=== PATIENT | female | born 2005 | race Caucasian/White ===

== ENCOUNTER → 2025-05-15 14:26 | Outpatient (CLI) | payer OTHER, SELFPAY ==
[2025-05-15 14:47] LABS: Appearance Urine UA CLEAR; Bilirubin Urine UA NEGATIVE (NEGATIVE); Color Urine UA YELLOW; Glucose Urine UA NEGATIVE (Negative); Ketones Urine UA NEGATIVE (NEGATIVE); Leukocyte Esterase Urine UA NEGATIVE (NEGATIVE); Nitrite Urine UA NEGATIVE (Negative); Occult Blood Urine UA NEGATIVE (Negative); Protein Urine UA NEGATIVE (Negative); Specific Gravity Urine UA <=1.005 (1.000-1.035); Urobilinogen Urine UA 0.2 E.U./dL (0.2)
[2025-05-15 14:51] LABS: pH Urine UA 5.5 (4.5-8.0)
[2025-05-15 15:09] LABS: Add Manual Diff / Slide Review NO; Basophils Absolute Auto 0 /uL (0-100); Basophils Percent Auto 0.5 % (0-2); Eosinophils Absolute Auto 0 /uL (0-450); Eosinophils Percent Auto 0.9 % (2-4); Hematocrit 34.8 % (36-46); Hemoglobin 12.5 g/dL (12.0-16.0); Lymphocytes Absolute Auto 1300 /uL (1100-4500); Lymphocytes Percent Auto 25.6 % (25-40); Mean Corpuscular HGB Conc 35.8 % (30-36); Mean Corpuscular Hemoglobin 31.9 PG (26-34); Monocytes Absolute Auto 500 /uL (0-900); Monocytes Percent Auto 10.5 % (3-14); Neutrophils Absolute Auto 3100 /uL (1500-7000); Neutrophils Percent Auto 62.5 % (50-75); Platelet Count 137 X10^3/uL (150-400); Red Blood Cell Count 3.91 X10^6/uL (4.0-5.2); Red Cell Distribution Width 12.6 % (11.6-14.8); White Blood Cell Count 4.9 X10^3/uL (4.5-11.0)
[2025-05-16 15:20] LABS: HIV 1 & 2 Ab/Ag 4th Gen Combo NEGATIVE (NEGATIVE); Hep C Virus Ab w/Reflex Quant NEGATIVE s/c (NEGATIVE); Hepatitis B Surface Antigen NEGATIVE s/c (NEGATIVE); Rubella Antibody IgG 21.8 IU/mL (>15)
[2025-05-17 09:08] LABS: Varicella IgG Antibody Non Reactive (Non Reactive)
== END ==
PROVIDERS: Referring Provider Family Medicine; Visit Provider Family Medicine
DX: Z34.00 Encounter for supervision of normal first pregnancy, unspecified trimester (principal)
CPT/HCPCS: 36415; 80055; 81003; 86787; 86803; 86850; 86900; 86901; 87086; 87389

== ENCOUNTER → 2025-06-12 14:12 | Outpatient (CLI) | payer OTHER, SELFPAY ==
[2025-06-12 15:41] LABS: Natera Collection Specimen Collected
== END ==
PROVIDERS: Referring Provider Family Medicine; Visit Provider Family Medicine
DX: Z34.02 Encounter for supervision of normal first pregnancy, second trimester (principal)
CPT/HCPCS: 36415

== ENCOUNTER → 2025-08-17 07:21 | Outpatient (CLI) | payer OTHER, SELFPAY ==
--- NOTE | 2025-08-17 07:28 | DI.US.S_ITS ---
PROCEDURE: US OB >= 14 WEEKS FETUS INDICATIONS: Anatomy Scan OUTSIDE/PRIOR DATING DATA: Last menstrual period (LMP): Unknown. LMP-based estimated date of delivery (CANDY): Not applicable. First dating scan (date and location): May 15, 2025. Estimated date of delivery (CANDY) from first dating scan: December 14, 2025. The calculations are made using the clinician provided CANDY of December 10, 2025. TECHNIQUE: Real-time scanning was performed of the fetus, with image documentation and biometric measurements. Endovaginal scanning: Not performed COMPARISON: None. FINDINGS: General: A single living intrauterine gestation is present. Presentation: Vertex. Placenta: Placental position is anterior , without previa. Amniotic fluid index: 21.7 cm, normal range is 5-24 cm. Single deepest vertical pocket is 6.0 cm. heart rate: 163 beats per minute. Maternal cervical canal: 3.5 cm long. Normal lower limit is 2.5 cm. biometrics: Biparietal diameter: 6.2 cm, 25 weeks and 0 days Head circumference: 21.9 cm, 24 weeks and 0 days Abdominal circumference: 19.3 cm, 24 weeks and 0 days Femur length: 4.0 cm, 22 weeks and 6 days Clinically estimated gestational age: 23 weeks and 4 days Composite gestational age from present scan: 24 weeks and 0 days Estimated weight and percentile: Approximately 615 g which correlates with the 45th percentile for gestational age Anatomic survey: Neuro: Ventricles are non-dilated at less than 10 mm. Cisterna magna is normal at 3-11 mm. Cerebellum is normal in size and morphology. Nuchal skin fold: Normal at less than 6 mm between 14-21 weeks gestational age. Face: Nose and lips, facial profile are normal. Spine: No evidence for spina bifida. Heart: 4-chambered heart is present, with normal ventricular outflow tracts. Diaphragm: Diaphragm is intact. Stomach: Left-sided stomach is present. Kidneys: Borderline prominent left renal pelvic AP diameter of approximately 5 mm. No gross hydronephrosis. Normal is less than 5 mm in 2nd trimester, less than 7 mm in 3rd trimester. Cord: 3-vessel cord has orthotopic insertion. Bladder: Normal in size. Extremities: All 4 extremities identified. IMPRESSION: Single living intrauterine gestation with estimated sonographic gestational age of approximately 24 weeks and 0 days versus approximately 23 weeks and 4 days by clinically estimated gestational age. Normal interval growth. Estimated weight of approximately 615 g which correlates with the 45th percentile for gestational age. Borderline prominence of the left renal pelvis measuring approximately 5 mm. No catalina hydronephrosis seen on either side. Recommend follow up ultrasound at 32 weeks gestational age. Otherwise, unremarkable second-trimester anatomy screening survey. We strive to produce accurate, complete, and clear reports of imaging services. To assist us in improving patient care, this report was composed using standard report templates and voice recognition software. Therefore, it may contain abnormal punctuation, insertions and/or omissions. Occasional wrong-word or sound-alike substitutions may occur. Though we review the report and make efforts to correct it, we do recommend that the report be read carefully in proper context to recognize any text inaccuracies. Dictated by: Greg Hunt M.D. on 08/17/2025 at 11:33 Approved by: Greg Hunt M.D. on 08/17/2025 at 11:50
== END ==
LOC: US 07:24
PROVIDERS: Referring Provider Family Medicine; Visit Provider Family Medicine
DX: Z36.89 Encounter for other specified antenatal screening (principal)
CPT/HCPCS: 76811

== ENCOUNTER → 2025-08-21 09:14 | Outpatient (CLI) | payer OTHER, SELFPAY ==
[2025-08-21 11:31] LABS: Hematocrit 30.4 % (36-46); Hemoglobin 10.7 g/dL (12.0-16.0)
[2025-08-21 12:07] LABS: GTT (PREG) 1 Hour PP 50gm Dose 67 mg/dL (76-139)
== END ==
PROVIDERS: Referring Provider Family Medicine; Visit Provider Family Medicine
DX: Z3A.26 26 weeks gestation of pregnancy (principal)
CPT/HCPCS: 36415; 82950; 85014; 85018

== ENCOUNTER → 2025-10-21 13:20 | Outpatient (CLI) | payer OTHER, SELFPAY ==
--- NOTE | 2025-10-21 13:23 | DI.US.S_ITS ---
PROCEDURE: US OB FOLLOW UP INDICATIONS: POSSIBLE PELVIECTASIS AND GROWTH OUTSIDE/PRIOR DATING DATA: Working CANDY: 12/10/2025 TECHNIQUE: Real-time scanning was performed of the fetus, with image documentation and biometric measurements. Spectral and Doppler evaluation of the umbilical artery was performed. Endovaginal scanning: Not performed COMPARISON: None. FINDINGS: General: A single living intrauterine gestation is present. Presentation: Vertex. Placenta: Placental position is anterior , without previa. Heterogeneous appearance, with possible small calcifications. Amniotic fluid index: 19.1 cm, normal range is 5-24 cm. Single deepest vertical pocket is 5.8 cm. heart rate: 157 beats per minute. Maternal cervical canal: 4.6 cm long. Normal lower limit is 2.5 cm. biometrics: Biparietal diameter: 8.8 cm, 35 weeks 5 days Head circumference: 31.5 cm, 35 weeks 2 days Abdominal circumference: 29.4 cm, 33 weeks 3 days Femur length: 5.9 cm, 30 weeks 4 days Clinically estimated gestational age: 32 weeks 6 days Composite gestational age from present scan: 33 weeks 5 days Estimated weight and percentile: 2087 g, corresponding to 43rd percentile Other: Marginal cord insertion, 1.7 cm from the edge. Persistent mild hydronephrosis and proximal left hydroureter, measuring 8 mm. Normal Doppler evaluation of the umbilical artery. IMPRESSION: Single living intrauterine at thirty-two weeks 6 days, CANDY of 12/10/2025. Estimated weight of 2087 g, 43rd percentile. Marginal cord insertion, 1.7 cm from the edge. Attention on follow-up. Persistent left-sided pelvic caliectasis at 8 mm. We strive to produce accurate, complete, and clear reports of imaging services. To assist us in improving patient care, this report was composed using standard report templates and voice recognition software. Therefore, it may contain abnormal punctuation, insertions and/or omissions. Occasional wrong-word or sound-alike substitutions may occur. Though we review the report and make efforts to correct it, we do recommend that the report be read carefully in proper context to recognize any text inaccuracies. Dictated by: Jarek Cummings M.D. on 10/22/2025 at 8:55 Approved by: Jarek Cummings M.D. on 10/22/2025 at 8:58
== END ==
LOC: US 13:22
PROVIDERS: Referring Provider Family Medicine; Visit Provider Family Medicine
DX: O26.843 Uterine size-date discrepancy, third trimester (principal); O99.891 Other specified diseases and conditions complicating pregnancy; N13.30 Unspecified hydronephrosis; Z3A.33 33 weeks gestation of pregnancy
CPT/HCPCS: 76816